=== PATIENT | female | born 1970 | race Caucasian/White ===

== ENCOUNTER → 2021-02-10 | Outpatient (CLI) | payer OTHER | LOC: M.CT 14:09 | PROVIDERS: ATTEND Registered Nurse Diabetes Educator | DX: K76.0 Fatty (change of) liver, not elsewhere classified (principal); N20.0 Calculus of kidney; R35.0 Frequency of micturition; R19.5 Other fecal abnormalities ==

== ENCOUNTER → 2021-02-22 | Outpatient (CLI) | payer OTHER | LOC: M.ULTRA 14:00 | PROVIDERS: ATTEND Registered Nurse Diabetes Educator | DX: R93.5 Abnormal findings on diagnostic imaging of other abdominal regions, including retroperitoneum (principal); R10.2 Pelvic and perineal pain; R10.32 Left lower quadrant pain; N88.8 Other specified noninflammatory disorders of cervix uteri ==